=== PATIENT | female | born 1950 | race Caucasian/White ===

== ENCOUNTER → 2018-07-22 | Outpatient (CLI) | payer OTHER | LOC: BMCIMAGING 17:51 | PROVIDERS: ATTEND Family Medicine | DX: J98.4 Other disorders of lung (principal) ==

== ENCOUNTER 2019-04-14 18:05 | Observation (INO) | payer OTHER | END 2019-04-15 18:15 | disposition home or self-care (01) | LOC: F3N 21:07 ==